=== PATIENT | male | born 1945 | race Caucasian/White ===

== ENCOUNTER 2017-06-14 14:18 | Emergency (ER) | payer MEDICARE ==
[~2017-06-14] VITALS: Ht 172.7 cm; Wt 61.2 kg
--- OUTSIDE RECORDS SUMMARY | 2017-06-14 14:22 | XMS REPORT | Clinical Summary ---
Author Author Admin, QIE Organization [facility] Address Unknown Phone Unavailable Allergies, Adverse Reactions, Alerts Allergy Name Reaction Description Start Date Severity Status Provider TETRACYCLINE Critical Active Miguelangel Quick MD HYDROCODONE Critical Active Miguelangel Quick MD Conditions or Problems Problem Name Problem Code Onset Date Status Entry Date Provider Comment Standard Description Annotate Kidney stone 592.0 Active Miguelangel Quick MD Calculus of kidney Medication List Medication Instructions Start Date Stop Date Generic Name NDC Status Provider Patient Instruction CYMBALTA 60 MG CPEP 1 cap by mouth daily DULOXETINE HCL 16547413573 Active Miguelangel Quick MD Active GEODON 80 MG ORAL CAPS 1 tab by mouth daily ZIPRASIDONE HCL 15622914423 Active Miguelangel Quick MD Active TOPIRAMATE 50 MG ORAL TABS 2 tabs by mouth daily TOPIRAMATE 43270202264 Active Miguelangel Quick MD Active XANAX 0.25 MG TABS 1 tab by mouth four times daily ALPRAZOLAM 64043968079 Active Miguelangel Quick MD Active OMEPRAZOLE 20 MG CPDR 1 tablet by mouth daily OMEPRAZOLE 82710683056 Active Miguelangel Quick MD Active DQDYKYBZSY-LWA-FFVN-CODEINE 47-284-08-30 MG ORAL CAPS 1 tab by mouth three times daily LFINGTFCNG-SPB-JIRD-CODEINE 90872448137 Active Miguelangel Quick MD Active Advance Directives Directive Description Start Date PERMISSION TO SHARE Vital Signs Date Name Value Unit Range Description blood pressure, diastolic 51 mm[Hg] BP hui blood pressure, systolic 100 mm[Hg] BP sys height E&M 68 [in_us] Bdy height pulse rate E&M 81 /min Heart rate temperature E&M 98.4 [degF] Body temperature weight E&M 120 [lb_av] Weight Measured blood pressure, diastolic 46 mm[Hg] BP hui blood pressure, systolic 98 mm[Hg] BP sys height E&M 68 [in_us] Bdy height pulse rate E&M 81 /min Heart rate temperature E&M 98.8 [degF] Body temperature weight E&M 120 [lb_av] Weight Measured Encounters Code Encounter Date Provider Facility CPT-89014 Level 2 Est. Patient 21:45:29 CDT Miguelangel Quick MD [facility] CPT-59709 Level 4 New Patient 18:55:09 [place] Miguelanegl Quick MD [facility] Procedures Code Procedure Name Date Entry Date Standard Description CPT-72452 Cystoscopy W/rem FB 21:45:29 CDT CPT-86675 Abd single AP View - XRAY USE ONLY 12:55:20 CDT
--- OUTSIDE RECORDS SUMMARY | 2017-06-14 14:22 | XMS REPORT | Clinical Summary ---
Author Author Admin, [facility] Organization [facility] Address Unknown Phone Unavailable Allergies, Adverse Reactions, Alerts Allergy Name Reaction Description Start Date Severity Status Provider Allergies Unknown Conditions or Problems Problem Name Problem Code Onset Date Status Entry Date Provider Comment Standard Description Annotate Problems Unknown Active Medication List Medication Instructions Start Date Stop Date Generic Name NDC Status Provider Patient Instruction Drug Treatment Unknown - unknown Procedures Code Procedure Name Date Entry Date Standard Description CPT-21468 Abd single AP View - XRAY USE ONLY 12:55:20 CDT
--- OUTSIDE RECORDS SUMMARY | 2017-06-14 14:23 | XMS REPORT | Clinical Summary ---
Author Author Admin, [facility] Organization [facility] Address Unknown Phone Unavailable Allergies, Adverse Reactions, [...] Procedure Name Date Entry Date Standard Description CPT-22245 Abd single AP View - XRAY USE ONLY 12:55:20 CDT
--- OUTSIDE RECORDS SUMMARY | 2017-06-14 14:23 | XMS REPORT | Clinical Summary ---
Author Author Admin, E Organization [employer] Address Unknown Phone Unavailable Allergies, Adverse Reactions, [...] 1 cap by mouth daily DULOXETINE HCL 08450396012 Active Miguelangel Quick MD Active GEODON 80 MG ORAL CAPS 1 tab by mouth daily ZIPRASIDONE HCL 05381123161 Active Miguelangel Quick MD Active TOPIRAMATE 50 MG ORAL TABS 2 tabs by mouth daily TOPIRAMATE 32353647442 Active Miguelangel Quick MD Active XANAX 0.25 MG TABS 1 tab by mouth four times daily ALPRAZOLAM 96254504857 Active Miguelangel Quick MD Active OMEPRAZOLE 20 MG CPDR 1 tablet by mouth daily OMEPRAZOLE 97657893610 Active Miguelangel Quick MD Active CPJIWZPWFZ-SIN-HHNH-CODEINE 69-614-96-30 MG ORAL CAPS 1 tab by mouth three times daily CXGFCKQRMZ-TSJ-BGLI-CODEINE 83888370025 Active Miguelangel Quick MD Active Advance Directives Directive Description Start Date PERMISSION TO SHARE Vital Signs Date Name Value Unit Range Description blood pressure, diastolic - 8462-4 51 mm[Hg] BP hui blood pressure, systolic - 8480-6 100 mm[Hg] BP sys height E&M - 8302-2 68 [in_us] Bdy height pulse rate E&M - 8867-4 81 /min Heart rate temperature E&M 98.4 [degF] Body temperature weight E&M - 3141-9 120 [lb_av] Weight Measured blood pressure, diastolic - 8462-4 46 mm[Hg] BP hui blood pressure, systolic - 8480-6 98 mm[Hg] BP sys height E&M - 8302-2 68 [in_us] Bdy height pulse rate E&M - 8867-4 81 /min Heart rate temperature E&M 98.8 [degF] Body temperature weight E&M - 3141-9 120 [lb_av] Weight Measured Encounters Code Encounter Date Provider Facility CPT-86626 Level 2 Est. Patient 21:45:29 CDT Miguelangel Quick MD [facility] CPT-98868 Level 4 New Patient 18:55:09 [place] Miguelangel Quick MD [facility] Procedures Code Procedure Name Date Entry Date Standard Description CPT-37281 Cystoscopy W/rem FB 21:45:29 CDT CPT-75032 Abd single AP View - XRAY USE ONLY 12:55:20 CDT
--- OUTSIDE RECORDS SUMMARY | 2017-06-14 14:23 | XMS REPORT | Clinical Summary ---
Author Author Admin, [facility] Organization [employer] [facility] Address Unknown Phone Unavailable Allergies, Adverse Reactions, [...] 1 cap by mouth daily DULOXETINE HCL 78608605741 Active Miguelangel Quick MD Active GEODON 80 MG ORAL CAPS 1 tab by mouth daily ZIPRASIDONE HCL 64446087126 Active Miguelangel Quick MD Active TOPIRAMATE 50 MG ORAL TABS 2 tabs by mouth daily TOPIRAMATE 08443373887 Active Miguelangel Quick MD Active XANAX 0.25 MG TABS 1 tab by mouth four times daily ALPRAZOLAM 16124666177 Active Miguelangel Quick MD Active OMEPRAZOLE 20 MG CPDR 1 tablet by mouth daily OMEPRAZOLE 43368112026 Active Miguelangel Quick MD Active GWOAEHZUXX-KIQ-TZUD-CODEINE 21-820-84-30 MG ORAL CAPS 1 tab by mouth three times daily YMRVVFNFXX-PCA-ZEVG-CODEINE 03591438109 Active Miguelangel Quick MD Active Advance Directives Directive Description Start Date PERMISSION TO SHARE Encounters Code Encounter Date Provider Facility CPT-89627 Level 2 Est. Patient 21:45:29 CDT Miguelangel Quick MD [facility] CPT-21655 Level 4 New Patient 18:55:09 CDT Miguelangel Quick MD [facility] Procedures Code Procedure Name Date Entry Date Standard Description CPT-09659 Cystoscopy W/rem FB 21:45:29 CDT CPT-52898 Abd single AP View - XRAY USE ONLY 12:55:20 CDT
--- OUTSIDE RECORDS SUMMARY | 2017-06-14 14:23 | XMS REPORT | Continuity of Care Document ---
Author Author [facility] Organization [facility] Address Unknown Phone Unavailable Allergies Active Description Code Type Severity Reaction Onset Reported/Identified Relationship to Patient Clinical Status Yes tetracycline Drug N/A [id number] Yes Vicodin Drug Mild [id number] Medications There is no data. Problems There is no data. Procedures There is no data. Results There is no data. Encounters ACCT No. Visit Date/Time Discharge Status Pt. Type Provider Facility Loc./Unit Complaint [id number] 11/16/2016 13:59:52 11/16/2016 23:59:59 CLS Outpatient PARAMJIT DENNIS [facility] Surgery R ureteroscopy w/ stone extraction [id number] 12/11/2016 16:25:02 ACT Unknown
--- OUTSIDE RECORDS SUMMARY | 2017-06-14 14:23 | XMS REPORT | Clinical Summary ---
Author Author Admin, [facility] Organization [facility] Address Unknown Phone Unavailable Allergies, Adverse [...] 1 cap by mouth daily DULOXETINE HCL 89172019436 Active Miguelangel Quick MD Active GEODON 80 MG ORAL CAPS 1 tab by mouth daily ZIPRASIDONE HCL 54087784326 Active Miguelangel Quick MD Active TOPIRAMATE 50 MG ORAL TABS 2 tabs by mouth daily TOPIRAMATE 35342665187 Active Miguelangel Quick MD Active XANAX 0.25 MG TABS 1 tab by mouth four times daily ALPRAZOLAM 27638996443 Active Miguelangel Quick MD Active OMEPRAZOLE 20 MG CPDR 1 tablet by mouth daily OMEPRAZOLE 22303716311 Active Miguelangel Quick MD Active LTTONLCRUO-KJD-ULQF-CODEINE 33-442-47-30 MG ORAL CAPS 1 tab by mouth three times daily ZWPPGOVCBB-KIW-FIHO-CODEINE 23790512276 Active Miguelangel Quick MD Active Encounters Code Encounter Date Provider Facility CPT-29361 Level 4 New Patient 18:55:09 CDT Miguelangel Quick MD [facility] Procedures Code Procedure Name Date Entry Date Standard Description CPT-78609 Abd single AP View - XRAY USE ONLY 12:55:20 CDT
--- OUTSIDE RECORDS SUMMARY | 2017-06-14 14:23 | XMS REPORT | Clinical Summary ---
Author Author Admin, E Organization [employer] Address Unknown Phone Unavailable Allergies, Adverse Reactions, [...] 1 cap by mouth daily DULOXETINE HCL 05964046105 Active Miguelangel Quick MD Active GEODON 80 MG ORAL CAPS 1 tab by mouth daily ZIPRASIDONE HCL 29778692947 Active Miguelangel Quick MD Active TOPIRAMATE 50 MG ORAL TABS 2 tabs by mouth daily TOPIRAMATE 93603809816 Active Miguelangel Quick MD Active XANAX 0.25 MG TABS 1 tab by mouth four times daily ALPRAZOLAM 78435827298 Active Miguelangel Quick MD Active OMEPRAZOLE 20 MG CPDR 1 tablet by mouth daily OMEPRAZOLE 42819679099 Active Miguelangel Quick MD Active DEIJKXPLNF-ESH-QJVZ-CODEINE 71-547-10-30 MG ORAL CAPS 1 tab by mouth three times daily OJNTJJJDKH-HZG-UOLV-CODEINE 49893388941 Active Miguelangel Quick MD Active Advance Directives [...] Measured Encounters Code Encounter Date Provider Facility CPT-36849 Level 2 Est. Patient 21:45:29 CDT Miguelangel Quick MD [facility] CPT-04912 Level 4 New Patient 18:55:09 CDT Miguelangel Quick MD [facility] Procedures Code Procedure Name Date Entry Date Standard Description CPT-21035 Cystoscopy W/rem FB 21:45:29 CDT CPT-97217 Abd single AP View - XRAY USE ONLY 12:55:20 CDT
--- OUTSIDE RECORDS SUMMARY | 2017-06-14 14:23 | XMS REPORT | Clinical Summary ---
Author Author Admin, E Organization [facility] Address Unknown Phone Unavailable Allergies, Adverse [...] 1 cap by mouth daily DULOXETINE HCL 43752202275 Active Miguelangel Quick MD Active GEODON 80 MG ORAL CAPS 1 tab by mouth daily ZIPRASIDONE HCL 39238969282 Active Miguelangel Quick MD Active TOPIRAMATE 50 MG ORAL TABS 2 tabs by mouth daily TOPIRAMATE 43244772205 Active Miguelangel Quick MD Active XANAX 0.25 MG TABS 1 tab by mouth four times daily ALPRAZOLAM 40223337089 Active Miguelangel Quick MD Active OMEPRAZOLE 20 MG CPDR 1 tablet by mouth daily OMEPRAZOLE 38118004025 Active Miguelangel Qiuck MD Active NPRLLWWXYQ-IUS-DQVB-CODEINE 51-187-12-30 MG ORAL CAPS 1 tab by mouth three times daily PTZGPCGXEZ-XCW-MHKE-CODEINE 48629644749 Active Miguelangel Quick MD Active Encounters Code Encounter Date Provider Facility CPT-40272 Level 4 New Patient 18:55:09 CDT Miguelangel Quick MD [facility] Procedures Code Procedure Name Date Entry Date Standard Description CPT-87304 Abd single AP View - XRAY USE ONLY 12:55:20 CDT
--- OUTSIDE RECORDS SUMMARY | 2017-06-14 14:23 | XMS REPORT | Clinical Summary ---
Author Author Admin, E Organization [employer] Address Unknown Phone Unavailable Allergies, Adverse Reactions, [...] 1 cap by mouth daily DULOXETINE HCL 28971126349 Active Miguelangel Quick MD Active GEODON 80 MG ORAL CAPS 1 tab by mouth daily ZIPRASIDONE HCL 95047243169 Active Miguelangel Quick MD Active TOPIRAMATE 50 MG ORAL TABS 2 tabs by mouth daily TOPIRAMATE 58827559566 Active Miguelangel Quick MD Active XANAX 0.25 MG TABS 1 tab by mouth four times daily ALPRAZOLAM 25444934136 Active Miguelangel Quick MD Active OMEPRAZOLE 20 MG CPDR 1 tablet by mouth daily OMEPRAZOLE 47684298213 Active Miguelangel Quick MD Active UIDYVAXSVX-DPD-AUXL-CODEINE 66-978-71-30 MG ORAL CAPS 1 tab by mouth three times daily ILUKEVCCHY-RAD-TLVI-CODEINE 19274539885 Active Miguelangel Quick MD Active Advance Directives [...] Measured Encounters Code Encounter Date Provider Facility CPT-58698 Level 2 Est. Patient 21:45:29 CDT Miguelangel Quick MD [facility] CPT-92698 Level 4 New Patient 18:55:09 CDT Miguelangel Quick MD [facility] Procedures Code Procedure Name Date Entry Date Standard Description CPT-12185 Cystoscopy W/rem FB 21:45:29 CDT CPT-64274 Abd single AP View - XRAY USE ONLY 12:55:20 CDT
--- OUTSIDE RECORDS SUMMARY | 2017-06-14 14:23 | XMS REPORT | Clinical Summary ---
Author Author Admin, E Organization [employer] Address Unknown Phone Unavailable Allergies, Adverse Reactions, [...] 1 cap by mouth daily DULOXETINE HCL 68847330579 Active Miguelangel Quick MD Active GEODON 80 MG ORAL CAPS 1 tab by mouth daily ZIPRASIDONE HCL 47945956959 Active Miguelangel Quick MD Active TOPIRAMATE 50 MG ORAL TABS 2 tabs by mouth daily TOPIRAMATE 81810765531 Active Miguelangel Quick MD Active XANAX 0.25 MG TABS 1 tab by mouth four times daily ALPRAZOLAM 66683653352 Active Miguelangel Quick MD Active OMEPRAZOLE 20 MG CPDR 1 tablet by mouth daily OMEPRAZOLE 87049652513 Active Miguelangel Quick MD Active ZHUQIMCPHN-ZRC-XNDW-CODEINE 24-143-30-30 MG ORAL CAPS 1 tab by mouth three times daily GMBSMODZKP-XSP-WFZC-CODEINE 63953860437 Active Miguelangel Quick MD Active Advance Directives [...] Measured Encounters Code Encounter Date Provider Facility CPT-99293 Level 2 Est. Patient 21:45:29 CDT Miguelangel Quick MD [facility] CPT-35595 Level 4 New Patient 18:55:09 CDT Miguelangel Quick MD [facility] Procedures Code Procedure Name Date Entry Date Standard Description CPT-67239 Cystoscopy W/rem FB 21:45:29 CDT CPT-19893 Abd single AP View - XRAY USE ONLY 12:55:20 CDT
--- NOTE | 2017-06-14 14:33 | ED Lower Extremity ---
General Chief Complaint: Trauma-Non Activation Stated Complaint: FALL Source: patient Exam Limitations: no limitations History of Present Illness Time seen by provider: 14:31 Initial Comments Right hip pain after a fall. Patient was at the [facility] for his anniversary with his . He fell out of the chair he was sitting and landing on the right hip. He was assisted to a standing position and took 4 steps and states that his knee gave out and he now has increased pain to the right hip and knee. He does have multiple sclerosis and COPD. He is from [facility]. Onset: just prior to arrival Severity: moderate Pain/Injury Location: right hip Method of Injury: fell Modifying Factors: Worse With Movement Allergies and Home Medications Allergies Coded Allergies: acetaminophen (Verified Allergy, Unknown, 06/14/17) hydrocodone (Verified Allergy, Unknown, 06/14/17) Home Medications Alprazolam 1 Mg Tablet, (Reported) Butalbit/Acetamin/Caff/Codeine 1 Each Capsule, (Reported) Diazepam 10 Mg Tablet, (Reported) Duloxetine HCl 60 Mg Capsule.dr, (Reported) Megestrol Acetate 400 Mg/10 Ml Oral.susp, (Reported) Olanzapine 15 Mg Tablet, (Reported) Omeprazole 20 Mg Capsule.dr, (Reported) Topiramate 25 Mg Tablet, (Reported) Ziprasidone HCl 80 Mg Capsule, (Reported) Zolpidem Tartrate 10 Mg Tablet, (Reported) Constitutional: see HPI EENTM: see HPI Respiratory: no symptoms reported Cardiovascular: no symptoms reported Genitourinary: no symptoms reported Musculoskeletal: see HPI Skin: no symptoms reported Psychiatric/Neurological: No Symptoms Reported Physical Exam Vital Signs Vital Sign - Last 12Hours 06/14/17 14:33 Temp 97.3 Pulse 87 Resp 20 B/P (MAP) 103/38 (59) Pulse Ox 98 Capillary Refill : General Appearance: WD/WN, no apparent distress HEENT: PERRL/EOMI, normal ENT inspection Neck: non-tender, full range of motion Respiratory: normal breath sounds, no respiratory distress, no accessory muscle use Gastrointestinal: normal bowel sounds, non tender Hips: right hip limited range of motion, right hip pain, right hip soft tissue tenderness Legs: bilateral leg non-tender, bilateral leg normal inspection, bilateral leg normal range of motion Knees: bilateral knee non-tender, bilateral knee normal inspection, bilateral knee normal range of motion Ankles: bilateral ankle non-tender, bilateral ankle normal inspection, bilateral ankle normal range of motion Feet: bilateral foot non-tender, bilateral foot normal inspection, bilateral foot normal range of motion Neurologic/Psychiatric: alert, normal mood/affect, oriented x 3, other (he is alert but his speech is slow and his answers delayed) Skin: normal color, warm/dry Progress/Results/Core Measures Results/Orders Lab Results Laboratory Tests Test 06/14/17 14:51 Range/Units White Blood Count 7.1 4.3-11.0 10^3/uL Red Blood Count 4.12 L 4.35-5.85 10^6/uL Hemoglobin 13.2 L 13.3-17.7 G/DL Hematocrit 37 L 40-54 % Mean Corpuscular Volume 90 80-99 FL Mean Corpuscular Hemoglobin 32 25-34 PG Mean Corpuscular Hemoglobin Concent 36 32-36 G/DL Red Cell Distribution Width 13.2 10.0-14.5 % Platelet Count 221 130-400 10^3/uL Mean Platelet Volume 9.3 7.4-10.4 FL Neutrophils (%) (Auto) 63 42-75 % Lymphocytes (%) (Auto) 26 12-44 % Monocytes (%) (Auto) 9 0-12 % Eosinophils (%) (Auto) 2 0-10 % Basophils (%) (Auto) 0 0-10 % Neutrophils # (Auto) 4.4 1.8-7.8 X 10^3 Lymphocytes # (Auto) 1.8 1.0-4.0 X 10^3 Monocytes # (Auto) 0.7 0.0-1.0 X 10^3 Eosinophils # (Auto) 0.1 0.0-0.3 10^3/uL Basophils # (Auto) 0.0 0.0-0.1 10^3/uL Sodium Level 145 135-145 MMOL/L Potassium Level 4.1 3.6-5.0 MMOL/L Chloride Level 110 H 98-107 MMOL/L Carbon Dioxide Level 27 21-32 MMOL/L Anion Gap 8 5-14 MMOL/L Blood Urea Nitrogen 17 7-18 MG/DL Creatinine 1.41 H 0.60-1.30 MG/DL Estimat Glomerular Filtration Rate 49 BUN/Creatinine Ratio 12 Glucose Level 88 70-105 MG/DL Calcium Level 8.6 8.5-10.1 MG/DL Total Bilirubin 0.3 0.1-1.0 MG/DL Aspartate Amino Transf (AST/SGOT) 17 5-34 U/L Alanine Aminotransferase (ALT/SGPT) 13 0-55 U/L Alkaline Phosphatase 100 40-136 U/L Total Protein 5.8 L 6.4-8.2 GM/DL Albumin 3.2 3.2-4.5 GM/DL My Orders Orders - SINDHU BISWAS APRN Pelvis With Right Hip 2-3views (06/14/17 14:23) Chest 1 View, Ap/Pa Only (06/14/17 14:30) Knee, Right, 3 Views (06/14/17 14:30) Saline Lock/Iv-Start (06/14/17 14:30) Cbc With Automated Diff (06/14/17 14:30) Comprehensive Metabolic Panel (06/14/17 14:30) Fentanyl Injection (Sublimaze Injection (06/14/17 14:45) Fentanyl Injection (Sublimaze Injection (06/14/17 16:00) Ketorolac Injection (Toradol Injection) (06/14/17 16:00) Ct Extremity Lower Right Wo (06/14/17 16:00) Medications Given in ED Current Medications Medications Dose Ordered Sig/Ashley Route Start Time Stop Time Status Last Admin Dose Admin Fentanyl Citrate 50 mcg ONCE ONCE IVP 06/14/17 14:45 06/14/17 14:46 DC 06/14/17 14:54 50 MCG Fentanyl Citrate 50 mcg ONCE ONCE IVP 06/14/17 16:00 06/14/17 16:02 DC 06/14/17 16:10 50 MCG Ketorolac Tromethamine 15 mg ONCE ONCE IVP 06/14/17 16:00 06/14/17 16:02 DC 06/14/17 16:10 15 MG Vital Signs/I&O Vital Sign - Last 12Hours 06/14/17 06/14/17 14:33 14:36 Temp 97.3 97.3 Pulse 87 87 Resp 20 20 B/P (MAP) 103/38 (59) 103/38 (59) Pulse Ox 98 98 Diagnostic Imaging Diagonstic Imaging: CT Comments NAME: CONTRERAS SCOTT 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 TECHNIQUE: Axially acquired CT was obtained through the right lower extremity without intravenous contrast. Coronal and sagittal reformations were also performed. INDICATION: Fall. Pain in right hip and pelvis. FINDINGS: Both of the hips are located. The morphology of both of the femoral heads appears normal. There is no cortical disruption demonstrated of the proximal femurs to suggest a proximal femoral fracture. There is no diastasis demonstrated of the pubic symphysis. There is no diastasis of the SI joints. No acute pelvic fracture is evident. There is some mild lower lumbar degenerative disc disease and facet arthropathy. There is bxeh-rg-kcdyfeuq central canal stenosis at L4-L5. The visualized intrapelvic contents demonstrate large degree of stool within the rectum. There is no evidence of bowel obstruction. There are bilateral fat-containing inguinal hernias. IMPRESSION: 1. No CT evidence of hip dislocation, proximal femoral, or pelvic fracture. 2. Large degree of stool within the colon. 3. Lumbar degenerative disc disease and facet arthropathy. Dictated on workstation # [id number] Dict: 06/14/17 1720 Trans: 06/14/17 1726 [id number] [id number] Interpreted by: ZACK FISCHER MD Electronically signed by: Departure Communication (Admissions) Progress Notes 1601- plain films failed to demonstrate any fracture or dislocation. Attempted to assist the patient to a standing position and he is able to partially bear weight on the right leg but immediately sits back down because of some pain in the anterior proximal right femur. We will proceed with a CT scan, additional fentanyl and Toradol. Impression Impression: Primary Impression: Contusion of right hip Disposition: HOME, SELF-CARE Condition: Stable Departure-Patient Inst. Decision time for Depature: 17:55 Referrals: MIKO URENA DO (PCP/Family) Primary Care Physician Patient Instructions: Contusion (DC) Add. Discharge Instructions: 1. Call your regular doctor tomorrow to make an appointment to be seen 2. Pain medication as directed 3. All discharge instructions reviewed with patient and/or family. Voiced understanding. SINDHU BISWAS APRN Jun 14, 2017 14:33
[2017-06-14] MEDS ORDERED: DULO60CA58 (14:39)
[2017-06-14] MEDS ORDERED: DIAZ10TA3 (14:39)
[2017-06-14] MEDS ORDERED: ALPR1TAB7 (14:39)
[2017-06-14] MEDS ORDERED: MEGE400O21 (14:39)
[2017-06-14] MEDS ORDERED: TOPI25TA10 (14:39)
[2017-06-14] MEDS ORDERED: OLAN15TA19 (14:39)
[2017-06-14] MEDS ORDERED: ZIPR80CA23 (14:39)
[2017-06-14] MEDS ORDERED: CODE1CAP20 (14:39)
[2017-06-14] MEDS ORDERED: ZOLP10TA5 (14:39)
[2017-06-14] MEDS ORDERED: OMEP20CA12 (14:39)
[2017-06-14] MEDS ORDERED: fentaNYL INJECTION 100 MCG/2 ML AMP IVP ONE ×2 (14:45→16:00)
[2017-06-14 15:12] LABS: BASOPHILS % (AUTO) 0 % (0-10); EOSINOPHILS # (AUTO) 0.1 10^3/uL (0.0-0.3); EOSINOPHILS % (AUTO) 2 % (0-10); HEMATOCRIT 37 % (40-54); HEMOGLOBIN 13.2 G/DL (13.3-17.7); LYMPHOCYTES # (AUTO) 1.8 X 10^3 (1.0-4.0); LYMPHOCYTES % (AUTO) 26 % (12-44); MEAN CORPUSCULAR HEMOGLOBIN 32 PG (25-34); MEAN CORPUSCULAR HGB CONC 36 G/DL (32-36); MEAN CORPUSCULAR VOLUME 90 FL (80-99); MEAN PLATELET VOLUME 9.3 FL (7.4-10.4); MONOCYTES # (AUTO) 0.7 X 10^3 (0.0-1.0); MONOCYTES % (AUTO) 9 % (0-12); NEUTROPHILS # (AUTO) 4.4 X 10^3 (1.8-7.8); NEUTROPHILS % (AUTO) 63 % (42-75); PLATELET COUNT 221 10^3/uL (130-400); RED BLOOD COUNT 4.12 10^6/uL (4.35-5.85); RED CELL DISTRIBUTION WIDTH 13.2 % (10.0-14.5); WHITE BLOOD COUNT 7.1 10^3/uL (4.3-11.0)
[2017-06-14 15:27] LABS: ALBUMIN 3.2 GM/DL (3.2-4.5); BILIRUBIN,TOTAL 0.3 MG/DL (0.1-1.0); CALCIUM 8.6 MG/DL (8.5-10.1); CREATININE SERUM 1.41 MG/DL (0.60-1.30); POTASSIUM 4.1 MMOL/L (3.6-5.0); TOTAL PROTEIN 5.8 GM/DL (6.4-8.2)
--- NOTE | 2017-06-14 15:47 | Diagnostic Imaging Report ---
INDICATION: Right hip injury from a fall. Pelvis and right hip at 3:42 PM FINDINGS: AP view pelvis and 2 additional views of the right hip show no fracture, dislocation or other acute abnormalities. IMPRESSION: Negative pelvis and right hip. Dictated by: Dictated on workstation # [id number]
--- NOTE | 2017-06-14 15:49 | Diagnostic Imaging Report ---
INDICATION: Right knee pain. FINDINGS: Three views of the right knee show no fracture, dislocation or other acute abnormalities. IMPRESSION: Negative right knee. Dictated by: Dictated on workstation # [id number]
--- NOTE | 2017-06-14 15:52 | Diagnostic Imaging Report ---
INDICATION: Chest pain. FINDINGS: A densely calcified subcarinal nodule is presumed granulomatous. No noncalcified chest mass. No infiltrate, failure, effusion or pneumothorax. IMPRESSION: No acute appearing abnormality. Dictated by: Dictated on workstation # [id number]
[2017-06-14] MEDS ORDERED: KETOROLAC 30 MG/ML VIAL IVP ONE (16:00)
--- NOTE | 2017-06-14 17:27 | Diagnostic Imaging Report ---
PROCEDURE: CT right lower extremity without contrast. TECHNIQUE: Axially acquired CT was obtained through the right lower extremity without intravenous contrast. Coronal and sagittal reformations were also performed. INDICATION: Fall. Pain in right hip and pelvis. FINDINGS: Both of the hips are located. The morphology of both of the femoral heads appears normal. There is no cortical disruption demonstrated of the proximal femurs to suggest a proximal femoral fracture. There is no diastasis demonstrated of the pubic symphysis. There is no diastasis of the SI joints. No acute pelvic fracture is evident. There is some mild lower lumbar degenerative disc disease and facet arthropathy. There is [id number] central canal stenosis at L4-L5. The visualized intrapelvic contents demonstrate large degree of stool within the rectum. There is no evidence of bowel obstruction. There are bilateral fat-containing inguinal hernias. IMPRESSION: 1. No CT evidence of hip dislocation, proximal femoral, or pelvic fracture. 2. Large degree of stool within the colon. 3. Lumbar degenerative disc disease and facet arthropathy. Dictated by: Dictated on workstation # [id number]
[2017-06-14 18:06] VITALS: BP 109/43
== END 2017-06-14 18:06 | disposition home or self-care (01) ==
LOC: EDUNIT# 14:18 → ER 14:19
DX: S70.01XA Contusion of right hip, initial encounter (principal); J44.9 Chronic obstructive pulmonary disease, unspecified; G35 Multiple sclerosis; W07.XXXA Fall from chair, initial encounter
CPT/HCPCS: 36415; 71045; 73562; 73700; 80053; 85025